=== PATIENT | female | born 2005 | race African-American/Black ===

== ENCOUNTER 2023-09-22 04:21 | Emergency (ER) | payer SELFPAY ==
[~2023-09-22] VITALS: Ht 160 cm; Wt 75.0 kg
[2023-09-22 04:24] VITALS: BP 108/62; PULSE 78; RESP 18; TEMP 98.4; O2SAT 100
== END 2023-09-22 06:00 | disposition left against medical advice (07) ==
LOC: ER 04:41
DX: L50.9 Urticaria, unspecified (principal); Z53.21 Procedure and treatment not carried out due to patient leaving prior to being seen by health care provider
CPT/HCPCS: 99281